=== PATIENT | female | born 1990 | race Caucasian/White ===

== ENCOUNTER 2020-08-25 14:47 | Emergency (ER) | payer OTHER ==
--- NOTE | 2020-08-25 15:19 | RAD ---
RADIOGRAPH RIGHT ANKLE 3 VIEWS: DATE: 08/25/2020 HISTORY: 30-year-old female with right ankle pain FINDINGS: Ankle mortise is congruent. There is no evidence of fracture. There is no subluxation or dislocation. IMPRESSION: No fracture.
[2020-08-25] MEDS ORDERED: Acetaminophen 500 MG TAB ONE (15:24)
== END 2020-08-25 15:25 | disposition home or self-care (01) ==
LOC: BURERS 14:47
DX: S93.402A Sprain of unspecified ligament of left ankle, initial encounter (principal); X50.0XXA Overexertion from strenuous movement or load, initial encounter

== ENCOUNTER 2024-02-20 18:19 | Emergency (ER) | payer OTHER, SELFPAY ==
[2024-02-20] MEDS ORDERED: Ibuprofen 200 MG TAB ONE (18:43)
== END 2024-02-20 19:20 | disposition home or self-care (01) ==
LOC: BURERS 18:19
DX: S93.502A Unspecified sprain of left great toe, initial encounter (principal); W10.8XXA Fall (on) (from) other stairs and steps, initial encounter

== ENCOUNTER 2025-06-29 23:40 | Emergency (ER) | payer BC, OTHER ==
[2025-06-30 00:33] LABS: #Basophils 0.1 thou/uL (0.0-0.2); #Eosinophils 0.1 thou/uL (0.0-0.7); #Lymphocytes 2.4 thou/uL (1.20-3.40); #Monocytes 0.6 thou/uL (0.11-0.59); #Neutrophils 6.2 thou/uL (1.40-6.50); %Basophils 0.9 % (0.0-1.0); %Eosinophils 1.4 % (0.0-10.0); %Lymphocytes 24.9 % (21.0-51.0); %Monocytes 6.8 % (0.0-10.0); %Neutrophils 66.0 % (42.0-75.0); Hematocrit 35.0 % (36.0-47.0); Hemoglobin 12.8 g/dL (12.0-16.0); Mean Corpuscular Hemoglobin 30.9 pg (27.0-31.0); Mean Corpuscular Volume 84.3 fl (78.0-98.0); Platelet Count 206 10x3/uL (130-400); Red Blood Cell (RBC) Count 4.15 mill/uL (4.20-5.40); White Blood Cell (WBC) Count 9.4 10x3/uL (4.8-10.8)
[2025-06-30 00:56] LABS: Troponin I Less than 0.010 ng/mL (< 0.028)
[2025-06-30 00:58] LABS: ALT (SGPT) 13 U/L (Less than 34); AST (SGOT) 18 U/L (11-34); Albumin 3.5 g/dL (3.1-4.5); Alkaline Phosphatase 48 U/L (40-110); Anion Gap 15 mmol/L (10-20); BUN (Urea Nitrogen) 12 mg/dL (7.0-18.7); Bilirubin, Total 0.2 mg/dL (0.3-1.2); Calc. Creatinine Clearance 0 mL/min (70-130); Calcium 8.8 mg/dL (7.8-10.44); Carbon Dioxide 21 mmol/L (22-29); Chloride 105 mmol/L (98-107); Globulin 2.9 g/dL (2.4-3.5); Glucose 89 mg/dL (70-105); Potassium 3.6 mmol/L (3.5-5.1); Sodium 137 mmol/L (136-145)
== END 2025-06-30 01:14 | disposition home or self-care (01) ==
LOC: BURERS 23:40
DX: O99.891 Other specified diseases and conditions complicating pregnancy (principal); R00.2 Palpitations; Z3A.17 17 weeks gestation of pregnancy
CPT/HCPCS: 36415; 80053; 84443; 84484; 85025; 93005; 99285